=== PATIENT | male | born 1940 | race American Indian/Alaskan Native ===

== ENCOUNTER 2016-11-27 07:05 | Day surgery (SDC) | payer BC, MEDICARE ==
[2016-11-27] MEDS ORDERED: XYLOCAINE MPF 2% ONE (07:15)
[2016-11-27] MEDS ORDERED: DECADRON ONE (07:15)
[2016-11-27] MEDS ORDERED: DILAUDID ONE ×2 (07:15→09:59)
[2016-11-27] MEDS ORDERED: DIPRIVAN 10 MG/ML IV ONE (07:15)
[2016-11-27] MEDS ORDERED: ZOFRAN ONE (07:16)
[2016-11-27] MEDS ORDERED: TRIPLE ANTIBIOTIC TP ONE (07:54)
[2016-11-27] MEDS ORDERED: MARCAINE 0.25% INFILTRATI ONE (07:54)
[2016-11-27] MEDS ORDERED: PEPCID PO NR (08:39)
[2016-11-27] MEDS ORDERED: NACL 0.9% 1000 ML 1,000 ML IV SCH (08:39)
--- NOTE | 2016-11-27 08:39 | Anesthesia Consultation ---
Anesthesia Consult and Med Hx Date of service: 11/27/16 - Airway Anesthetic Teeth Evaluation: Edentulous ROM Head & Neck: Adequate Mental/Hyoid Distance: Adequate Mallampati Class: Class II Intubation Access Assessment: Probably Good - Pulmonary Exam CTA: Yes - Cardiac Exam Cardiac Exam: No Murmur - Pre-Operative Health Status ASA Pre-Surgery Classification: ASA3 Proposed Anesthetic Plan: General - Pulmonary Hx Smoking: No Hx Sleep Apnea: Yes (consistently uses CPAP) - Cardiovascular System Hx Hypertension: Yes (X 30 YRS) Hx Cardia Arrhythmia: Yes (occassional PAC/PVC) - Central Nervous System Hx Neuromuscular Disorder: No Hx Psychiatric Problems: No - Gastrointestinal Hx Gastroesophageal Reflux Disease: No - Endocrine Hx Renal Disease: No Hx Insulin Dependent Diabetes: No - Hematic Hx Anemia: No Hx Sickle Cell Disease: No - Other Systems Hx Alcohol Use: No Hx Substance Use: No Hx Cancer: No Hx Obesity: No
--- NOTE | 2016-11-27 08:39 | Anesthesia Day of Surgery ---
Anesthesia Day of Surgery - Day of Surgery Patient Examined: Yes Patient H&P Reviewed: Yes Patient is NPO: Yes
[2016-11-27] MEDS ORDERED: ANCEF/STERILE WATER 2 GM/20 ML 2 GM/20 ML SYRINGE IV NR ×2 (09:00)
[2016-11-27] MEDS ORDERED: NACL 0.9% IR ONE (09:45)
[2016-11-27] MEDS ORDERED: TORADOL ONE (09:49)
--- NOTE | 2016-11-27 10:01 | Post Operative Note ---
Date of procedure: 11/27/16 Pre-op diagnosis: balabitis Post-op diagnosis: same Findings: as above Procedure: circ Anesthesia: GETA Surgeon: FLORENCE ROMAN Estimated blood loss: minimal Pathology: list (foreskin) Specimen disposition: to lab Condition: stable Disposition: PACU
--- NOTE | 2016-11-27 10:03 | Discharge Summary ---
Short Stay Discharge Plan Activity: other (no sex .. no straining ) Weight Bearing Status: Full Weight Bearing Diet: low fat, low cholesterol, low salt Wound: open to air (remove dressing at 7 pm tonight ice packs today ) Durable Medical Equipment Needed Upon Discharge: other (ice opacks in RR) Follow up with: PRIMARY CAREMD [Primary Care Provider] - 7 Days FLORENCE ROMAN MD [Staff Physician] - 14 Days
--- NOTE | 2016-11-27 10:30 | Post Anesthesia Evaluation ---
- Post Anesthesia Evaluation Patient Participated: Yes Airway Patent: Yes Stable Respiratory Function: Yes Nausea/Vomiting: No Temp > 96.8F: Yes Pain Manageable: Yes Adequeate Hydration: Yes Anesthesia Complications: No Block Receding Appropriately: Not Applicable Patient on Ventilator: No
[2016-11-27] MEDS ORDERED: DILAUDID IV PRN (10:33)
[2016-11-27] MEDS ORDERED: ZOFRAN IV PRN (10:33)
[2016-11-27] MEDS ORDERED: NORCO 5/325 PO PRN (11:00)
[2016-11-27 11:23] VITALS: BP 142/69
--- NOTE | 2016-11-27 13:32 | Operative Report ---
PREOPERATIVE DIAGNOSES: Recurrent balanitis, redundant foreskin. POSTOPERATIVE DIAGNOSES: Recurrent balanitis, redundant foreskin. PROCEDURE: Circumcision, sleeve technique. SURGEON: Tj Crane MD ANESTHESIA: General LMA. FINDINGS: This is a gentleman with recurrent balanitis, irritation, and redundant foreskin. He now presents for circumcision. All risks and complications were discussed. DESCRIPTION OF PROCEDURE: The patient brought to the operating room and placed on the operating table. Following induction of anesthesia, placed in lithotomy position, prepped and draped in usual sterile fashion. Two circumferential incisions were made with a marking pencil and the incision was made. The area was connected dorsally and a large amount of redundant foreskin was removed. The excess skin was dissected free of the surrounding fascial layers. This was removed. Hemostasis was obtained with 3-0 Vicryl ties and cautery as needed. At this point, the sutures were placed 12, 3, 6, and 9 o'clock position. Each quadrant was sutured with 3-0 and 4-0 chromic. A small amount of frenulum was approximated with 4-0 chromic. The patient tolerated the procedure well. Minimal blood loss. Brought to recovery room with a loose sterile dressing in stable condition. JOB# [id number] TAYE/DALY
== END 2016-11-27 12:17 | disposition home or self-care (01) ==
LOC: OR 07:05
PROVIDERS: ATTEND Urology
DX: N48.1 Balanitis (principal); N47.8 Other disorders of prepuce; I10 Essential (primary) hypertension; G47.33 Obstructive sleep apnea (adult) (pediatric); Z79.899 Other long term (current) drug therapy
CPT/HCPCS: 54161; 88304; J0690; J1100; J1170; J1885; J2405; J2704; J7030; A6250

== ENCOUNTER 2018-11-06 05:50 | Day surgery (SDC) | payer BC ==
[2018-11-06 06:57] LABS: Basophils # (Auto) 0.1 K/mm3 (0.0-0.1); Basophils % (Auto) 2.2 % (0.0-1.8); Eosinophils # (Auto) 0.1 K/mm3 (0.0-0.4); Hemoglobin 14.3 gm/dl (11.8-15.2); Lymphocytes # (Auto) 1.8 K/mm3 (1.2-5.4); Mean Corpuscular HGB Conc 33 % (32-34); Mean Corpuscular Volume 84 fl (84-94); Monocytes # (Auto) 0.5 K/mm3 (0.0-0.8); Monocytes % (Auto) 10.6 % (0.0-7.3); Platelet Count 228 K/mm3 (140-440); Red Blood Count 5.13 M/mm3 (3.65-5.03); Red Cell Distribution Width 14.5 % (13.2-15.2)
[2018-11-06 07:06] LABS: INR 1.08 (0.87-1.13); Partial Thromboplastin Time 27.2 Sec. (24.2-36.6)
[2018-11-06 07:17] LABS: BUN/Creatinine Ratio 15; Blood Urea Nitrogen 20 mg/dL (9-20); Calcium 9.4 mg/dL (8.4-10.2); Hemolysis Index 90
[2018-11-06] MEDS ORDERED: NACL 0.9% 500 ML 500 ML IV SCH (08:00)
[2018-11-06] MEDS ORDERED: HURRICAINE ONE 20% TOPICAL SPRAY MM NR (08:00)
--- NOTE | 2018-11-06 08:04 | Anesthesia Consultation ---
Anesthesia Consult and Med Hx Date of service: 11/06/18 - Airway Anesthetic Teeth Evaluation: Edentulous ROM Head & Neck: Adequate Mental/Hyoid Distance: Adequate Mallampati Class: Class III Intubation Access Assessment: Possibly Difficult - Pulmonary Exam CTA: Yes - Cardiac Exam Cardiac Exam: No Murmur - Pre-Operative Health Status ASA Pre-Surgery Classification: ASA3 Proposed Anesthetic Plan: MAC - Pulmonary Hx Smoking: No Hx Respiratory Symptoms: No Hx Sleep Apnea: Yes (compliant with CPAP) - Cardiovascular System Hx Hypertension: Yes (no antihypertensives today) Hx Heart Attack/AMI: No Hx Percutaneous Transluminal Coronary Angioplasty (PTCA): No Hx Cardia Arrhythmia: Yes (aifb/flutter) Hx Pacemaker: No Hx Internal Defibrillator: No Hx Peripheral Vascular Disease: Yes - Central Nervous System Hx Neuromuscular Disorder: No CVA: No Hx Psychiatric Problems: No - Gastrointestinal Hx Gastroesophageal Reflux Disease: No - Endocrine Hx Renal Disease: No Hx Liver Disease: No Hx Insulin Dependent Diabetes: No Hx Non-Insulin Dependent Diabetes: No Hx Thyroid Disease: No - Other Systems Hx Alcohol Use: No Hx Substance Use: No Hx Obesity: Yes - Additional Comments Anesthesia Medical History Comments: No hx anesthetic complications. Last dose eliquis 11/04/18. 10/19/18: EF 50-55% without significant valvular lesions, negative stress test.
--- NOTE | 2018-11-06 08:05 | Anesthesia Day of Surgery ---
Anesthesia Day of Surgery - Day of Surgery Patient Examined: Yes Patient H&P Reviewed: Yes Patient is NPO: Yes
[2018-11-06] MEDS ORDERED: DIPRIVAN 10 MG/ML IV ONE ×2 (08:07)
[2018-11-06] MEDS ORDERED: ELIQUIS PO NR (09:11)
--- NOTE | 2018-11-06 09:12 | Post Anesthesia Evaluation ---
- Post Anesthesia Evaluation Patient Participated: Yes Airway Patent: Yes Stable Respiratory Function: Yes Nausea/Vomiting: No Temp > 96.8F: Yes Pain Manageable: Yes Adequeate Hydration: Yes Anesthesia Complications: No
[2018-11-06] MEDS ORDERED: ELIQUIS ONE (10:09)
[2018-11-06 10:35] VITALS: BP 122/83
== END 2018-11-06 11:23 | disposition home or self-care (01) ==
LOC: CATHLABREC 05:50 → EDSTATUS 07:30 → CATHLABREC 11:23
PROVIDERS: ATTEND Internal Medicine Cardiovascular Disease
DX: I08.0 Rheumatic disorders of both mitral and aortic valves (principal); I48.0 Paroxysmal atrial fibrillation; I10 Essential (primary) hypertension; E66.9 Obesity, unspecified; I73.9 Peripheral vascular disease, unspecified; Z79.82 Long term (current) use of aspirin; Z79.899 Other long term (current) drug therapy; Z98.890 Other specified postprocedural states; Z68.39 Body mass index [BMI] 39.0-39.9, adult
CPT/HCPCS: 36415; 80048; 85025; 85610; 85730; 92960; 93005; 93010; 93312; 93320; 93325; J2704; J7040

== ENCOUNTER 2019-08-19 10:35 | Emergency (ER) | payer BC ==
[2019-08-19 10:52] VITALS: BP 165/84
--- NOTE | 2019-08-19 12:04 | Emergency Department Report ---
ED Headache HPI - General Chief Complaint: Headache Stated Complaint: COLD Time Seen by Provider: 08/19/19 11:33 - History of Present Illness Initial Comments: This is a 79-year-old male with a history of hypertension controlled with medication who presents the ED complaining of sneezing for the past 2 days feeling like he is getting a cold due to the weather change and a nasal congestion with headache. Patient denies any fever, chills, nausea or vomiting or abdominal pain, chest pain or shortness of breath. Patient states that he takes his medication daily as prescribed by his primary care Dr. Eleazar Estrella. Patient states that his office was closed so he was not able to go in to the PCP. Patient states that right now headache is about a 3 out of 10 intensity and mild. He denies any recent head injury, trauma, blurry vision. Patient does use corrective lenses. Timing/Duration: 24 hours Quality: achy Head Injury Location: frontal Allergies/Adverse Reactions: Allergies No Known Allergies Allergy (Verified 11/23/16 10:25) Home Medications: Ambulatory Orders Aspirin [Adult Low Dose Aspirin EC] 81 mg PO DAILY 11/23/16 Apixaban [Eliquis] 5 mg PO BID 11/06/18 Valsartan/Hydrochlorothiazide [Valsartan-Hctz 160-25 mg Tab] 1 tab PO BID 11/06/18 dilTIAZem HCl [Diltiazem 24Hr ER (LA)] 180 mg PO DAILY 11/06/18 Fluticasone [Flonase] 1 spray NS QDAY #1 bottle 08/19/19 Pseudoephedrine ER [Sudafed 12 Hr] 120 mg PO BID #10 tablet.er 08/19/19 ED Review of Systems ROS: Stated complaint: COLD Other details as noted in HPI Comment: All other systems reviewed and negative ED Past Medical Hx - Past Medical History Previous Medical History?: Yes Hx Hypertension: Yes (no antihypertensives today) Hx Heart Attack/AMI: No Hx Liver Disease: No Hx Renal Disease: No Hx Sickle Cell Disease: No - Surgical History Past Surgical History?: No Hx Pacemaker: No Hx Internal Defibrillator: No - Social History Smoking Status: Never Smoker Substance Use Type: None - Medications Home Medications: Home Medications Medication Instructions Recorded Confirmed Last Taken Type Aspirin [Adult Low Dose Aspirin EC] 81 mg PO DAILY 07/11/06/18 11/04/18 History 81 mg Apixaban [Eliquis] 5 mg PO BID 11/06/18 11/06/18 11/04/18 History 5 mg Valsartan/Hydrochlorothiazide 1 tab PO BID 11/06/18 11/06/18 11/05/18 History [Valsartan-Hctz 160-25 mg Tab] 1 tab dilTIAZem HCl [Diltiazem 24Hr ER 180 mg PO DAILY 11/06/18 11/06/18 11/05/18 History (LA)] 180 mg Fluticasone [Flonase] 1 spray NS QDAY #1 bottle 08/19/19 Unknown Rx Pseudoephedrine ER [Sudafed 12 Hr] 120 mg PO BID #10 tablet.er 08/19/19 Unknown Rx ED Physical Exam - General Limitations: No Limitations General appearance: alert, in no apparent distress - Head Head exam: Present: atraumatic, normocephalic - Eye Eye exam: Present: normal appearance, PERRL Pupils: Present: normal accommodation - ENT ENT exam: Present: mucous membranes moist, other (Maxillary sinus tenderness palpation, no rhinorrhea, clear nostrils, turbinates pink and moist) - Neck Neck exam: Present: normal inspection, full ROM. Absent: tenderness - Respiratory Respiratory exam: Present: normal lung sounds bilaterally. Absent: respiratory distress - Cardiovascular Cardiovascular Exam: Present: regular rate, normal rhythm. Absent: systolic murmur, diastolic murmur, rubs, gallop - GI/Abdominal GI/Abdominal exam: Present: soft, normal bowel sounds - Rectal Rectal exam: Present: deferred - Extremities Exam Extremities exam: Present: normal inspection - Back Exam Back exam: Present: normal inspection - Neurological Exam Neurological exam: Present: alert, oriented X3, CN II-XII intact, normal gait - Psychiatric Psychiatric exam: Present: normal affect, normal mood - Skin Skin exam: Present: warm, dry, intact, normal color. Absent: rash ED Course Vital Signs 08/19/19 10:51 Temperature 98.3 F Pulse Rate 45 L Respiratory 20 Rate Blood Pressure 165/84 O2 Sat by Pulse 99 Oximetry ED Medical Decision Making - Medical Decision Making This 79-year-old male presenting with allergic rhinitis/sinusitis. I discussed with patient that he should avoid being out in the pollen for a long time and wear a mask while outside. I discussed with the patient to take Sudafed, Flonase as well as vitamin C for immune strength. Patient is not having any neurological deficit or having any pain at this time. Patient will be discharged with instructions and follow-up with Dr. Piña. Patient does state that he understands instructions. Vital signs are normal patient is in no acute distress Critical care attestation.: If time is entered above; I have spent that time in minutes in the direct care of this critically ill patient, excluding procedure time. ED Disposition Clinical Impression: Allergic rhinitis, Allergic sinusitis, Sinus headache Disposition: TO HOME OR SELFCARE Is pt being admited?: No Does the pt Need Aspirin: No Condition: Stable Instructions: Sinusitis (ED), Tension Headache (ED), Acute Headache (ED) Additional Instructions: Make sure to follow up with the primary care physician as discussed. Take all your medications as you've been prescribed. If you have any worsening symptoms or develop new symptoms please return to ED immediately. Prescriptions: Fluticasone [Flonase] 1 spray NS QDAY #1 bottle Pseudoephedrine ER [Sudafed 12 Hr] 120 mg PO BID #10 tablet.er Referrals: PRIMARY MD MIKE [Primary Care Provider] - 3-5 Days ELEAZAR ESTRELLA MD [Referring] - 3-5 Days Forms: Work/School Release Form(ED) Time of Disposition: 12:06
== END 2019-08-19 12:24 | disposition home or self-care (01) ==
LOC: ED 10:35
DX: J30.89 Other allergic rhinitis (principal); I10 Essential (primary) hypertension
CPT/HCPCS: 99282

== ENCOUNTER 2020-02-11 15:51 | Observation (INO) | payer BC, MEDICARE ==
[2020-02-11 16:55] LABS: Basophils % (Auto) 0.9 % (0.0-1.8); Eosinophils # (Auto) 0.1 K/mm3 (0.0-0.4); Eosinophils % (Auto) 1.9 % (0.0-4.3); Hematocrit 42.3 % (35.5-45.6); Hemoglobin 14.1 gm/dl (11.8-15.2); Lymphocytes # (Auto) 1.4 K/mm3 (1.2-5.4); Mean Corpuscular HGB Conc 33 % (32-34); Mean Corpuscular Volume 86 fl (84-94); Monocytes # (Auto) 0.5 K/mm3 (0.0-0.8); Monocytes % (Auto) 11.5 % (0.0-7.3); Platelet Count 220 K/mm3 (140-440); Red Blood Count 4.92 M/mm3 (3.65-5.03); Red Cell Distribution Width 14.7 % (13.2-15.2)
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
[2020-02-11 17:07] LABS: INR 1.14 (0.87-1.13); Partial Thromboplastin Time 28.9 Sec. (24.2-36.6); Thrombin Time 16.5 Sec. (15.1-19.6)
--- NOTE | 2020-02-11 17:07 | Cat Scan Report ---
CT head/brain wo con INDICATION / CLINICAL INFORMATION: 79 years Male; cerebrovascular accident, altered mental status.. TECHNIQUE: Routine CT head without contrast. All CT scans at this location are performed using CT dos e reduction for ALARA by means of automated exposure control. COMPARISON: None. FINDINGS: BRAIN / INTRACRANIAL CONTENTS: There is an old lacunar infarct involving right thalamus. There is mil d to moderate cerebral white matter disease most consistent with microvascular angiopathy. There is a lso mild cerebral atrophy with associated mild prominence of the ventricular system. The motion degrades the image quality. There is incidental dense calcification along the falx. Howeve r, there is no clear CT evidence of acute intracranial hemorrhage or significant mass effect. The findings are compatible with a 1.6 cm meningioma along the anterior right temporal lobe with focu s of calcification at. Accordingly, this finding appears extra-axial with slight mass effect upon the anterior right temporal lobe. There does not appear to be significant adjacent vasogenic edema. ORBITS: No significant abnormality of visualized orbits. SINUSES / MASTOIDS: No significant abnormality in the visualized paranasal sinuses or mastoid air nadiya ls. CRANIOCERVICAL JUNCTION: No significant abnormality. ADDITIONAL FINDINGS: None. IMPRESSION: 1. 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 Signer Name: Juan Sanchez MD Signed: 02/11/2020 5:02 PM Workstation Name: [id number]
[2020-02-11 17:11] LABS: Creatine Kinase MB 2.8 ng/mL (0.0-4.0)
[2020-02-11 17:12] LABS: Alanine Aminotransferase 15 units/L (7-56); BUN/Creatinine Ratio 10; Blood Urea Nitrogen 13 mg/dL (9-20); Calcium 9.4 mg/dL (8.4-10.2); Hemolysis Index 2
[2020-02-11] MEDS ORDERED: ACETAMINOPHEN 500 MG TAB ONE (17:34)
[2020-02-11] MEDS ORDERED: ACETAMINOPHEN 500 MG TAB PO ONE (17:35)
--- NOTE | 2020-02-11 17:49 | Cat Scan Report ---
CT angio head INDICATION / CLINICAL INFORMATION: 79 years Male; MAIN. TECHNIQUE: Thin cut axial images obtained through the head during IV bolus contrast administration. S agittal, coronal, and 3 plane MIP reconstructions performed by the technologist. NASCET type criteria used evaluate stenoses. Automated exposure control utilized for radiation reduction purposes. COMPARISON: None available. FINDINGS: INTERNAL CAROTID ARTERIES: There is mild atherosclerotic calcification involving distal internal leung tid arteries without significant stenosis by NASCET criteria. VERTEBROBASILAR SYSTEM: There is mild irregularity of the basilar artery with mild segmental narrowin g likely related to atherosclerotic disease at. 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 CEREBRAL ARTERIES: There is no significant focal stenosis involving anterior or middle cerebral arter y branches. Furthermore, there is no clear CTA evidence of large vessel occlusion. ANEURYSM: None identified. ADDITIONAL FINDINGS: The findings correlate with the earlier noncontrast CT head compatible with 1.5 cm meningioma along the anterior right frontal lobe. There are coursing adjacent of vessels are withi n this region with mild degree of mass effect. There also appears to be a smaller 1 cm meningioma rojas ng the anterior sphenoid wing. IMPRESSION: There is mild segmental narrowing involving the basilar artery.. 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 There is mild atherosclerotic calcification involving distal internal carotid arteries without signif icant focal stenosis. The findings are compatible with meningiomas along the anterior right middle cranial fossa and left s phenoid wing as detailed above. Signer Name: Juan Sanchez MD Signed: 02/11/2020 5:45 PM Workstation Name: [id number]
--- NOTE | 2020-02-11 17:55 | Cat Scan Report ---
CT angio neck INDICATION / CLINICAL INFORMATION: 79 years Male; AMS. TECHNIQUE: Thin cut axial images obtained through the head during IV bolus contrast administration. S agittal, coronal, and 3 plane MIP reconstructions performed by the technologist. NASCET type criteria used evaluate stenoses. All CT scans at this location are performed using CT dose reduction for ALAR A by means of automated exposure control. COMPARISON: None available. FINDINGS: CAROTID ARTERIES: There is mild calcified plaque involving proximal internal carotid arteries without significant stenosis by NASCET criteria. There is developmental tortuosity of the distal segments bi laterally without focal narrowing. The common carotid arteries are essentially unremarkable. VERTEBRAL ARTERIES: The proximal vertebral arteries are scattered by the degree of beam hardening art ifact at. There is relative hypoplasia of the vertebral arteries which represents a developmental praveen iant. However, there is no significant focal stenosis. ARCH: There is mild calcification involving the aortic arch without significant narrowing of the arch vessels. ADDITIONAL FINDINGS: Remainder of the surrounding soft tissues are grossly normal. IMPRESSION: There is very mild calcification involving the proximal internal carotid arteries bilaterally without significant stenosis by NASCET criteria. Signer Name: Juan Sanchez MD Signed: 02/11/2020 5:50 PM Workstation Name: [id number]
--- NOTE | 2020-02-11 18:20 | Emergency Department Report ---
ED General Adult HPI - General Chief complaint: Altered Mental Status Stated complaint: HEADACHE/AMS Time Seen by Provider: 02/11/20 16:34 Source: patient, EMS Mode of arrival: Stretcher Limitations: No Limitations - History of Present Illness Initial comments: Patient presents to the emergency department with a chief complaint of right- sided weakness. Patient states this morning woke up with a headache which is abnormal for him because he does not have headaches frequently and some weakness. 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 Patient states while driving he began to have difficulty remembering where he was going and then he began to have right-sided weakness and at that point he reported to the [facility] on [address]. At this point his friend called the paramedics and he agreed to come to the hospital. Patient denies chest pain, shortness of breath, or abdominal pain. -: Sudden Severity scale (0 -10): 3 Quality: other (Throbbing) Consistency: constant Improves with: none Worsens with: none Associated Symptoms: denies other symptoms Treatments Prior to Arrival: none - Related Data Home Medications Medication Instructions Recorded Confirmed Last Taken Aspirin [Adult Low Dose Aspirin EC] 81 mg PO DAILY 11/23/16 11/06/18 11/04/18 81 mg Apixaban [Eliquis] 5 mg PO BID 11/06/18 11/06/18 11/04/18 5 mg Valsartan/Hydrochlorothiazide 1 tab PO BID 11/06/18 11/06/18 11/05/18 [Valsartan-Hctz 160-25 mg Tab] 1 tab dilTIAZem HCl [Diltiazem 24Hr ER 180 mg PO DAILY 11/06/18 11/06/18 11/05/18 (LA)] 180 mg Previous Rx's Medication Instructions Recorded Last Taken Type Fluticasone [Flonase] 1 spray NS QDAY #1 bottle 08/19/19 Unknown Rx Pseudoephedrine ER [Sudafed 12 Hr] 120 mg PO BID #10 tablet.er 08/19/19 Unknown Rx Allergies Allergy/AdvReac Type Severity Reaction Status Date / Time No Known Allergies Allergy Verified 11/23/16 10:25 ED Review of Systems ROS: Stated complaint: HEADACHE/AMS Other details as noted in HPI Constitutional: denies: chills, fever Eyes: denies: eye pain, eye discharge, vision change ENT: denies: ear pain, throat pain Respiratory: denies: cough, shortness of breath, wheezing Cardiovascular: denies: chest pain, palpitations Endocrine: no symptoms reported Gastrointestinal: denies: abdominal pain, nausea, diarrhea Genitourinary: denies: urgency, dysuria Musculoskeletal: denies: back pain, joint swelling, arthralgia Skin: denies: rash, lesions Neurological: headache. denies: weakness, paresthesias Psychiatric: denies: anxiety, depression Hematological/Lymphatic: denies: easy bleeding, easy bruising ED Past Medical Hx - Past Medical History Hx Hypertension: Yes (no antihypertensives today) Hx Heart Attack/AMI: No Hx Liver Disease: No Hx Renal Disease: No Hx Sickle Cell Disease: No - Surgical History Hx Pacemaker: No Hx Internal Defibrillator: No - Social History Smoking Status: Never Smoker Substance Use Type: None - Medications Home Medications: Home Medications Medication Instructions Recorded Confirmed Last Taken Type Aspirin [Adult Low Dose Aspirin EC] 81 mg PO DAILY 11/23/16 11/06/18 11/04/18 History 81 mg Apixaban [Eliquis] 5 mg PO BID 11/06/18 11/06/18 11/04/18 History 5 mg Valsartan/Hydrochlorothiazide 1 tab PO BID 11/06/18 11/06/18 11/05/18 History [Valsartan-Hctz 160-25 mg Tab] 1 tab dilTIAZem HCl [Diltiazem 24Hr ER 180 mg PO DAILY 11/06/18 11/06/18 11/05/18 History (LA)] 180 mg Fluticasone [Flonase] 1 spray NS QDAY #1 bottle 08/19/19 Unknown Rx Pseudoephedrine ER [Sudafed 12 Hr] 120 mg PO BID #10 tablet.er 08/19/19 Unknown Rx ED Physical Exam - General Limitations: No Limitations General appearance: alert, in no apparent distress - Head Head exam: Present: atraumatic, normocephalic - Eye Eye exam: Present: normal appearance, PERRL, EOMI - ENT ENT exam: Present: mucous membranes moist - Neck Neck exam: Present: normal inspection - Respiratory Respiratory exam: Present: normal lung sounds bilaterally. Absent: respiratory distress - Cardiovascular Cardiovascular Exam: Present: regular rate, normal rhythm. Absent: systolic murmur, diastolic murmur, rubs, gallop - GI/Abdominal GI/Abdominal exam: Present: soft, normal bowel sounds. Absent: distended, t enderness - Rectal Rectal exam: Present: deferred - Extremities Exam Extremities exam: Present: normal inspection - Back Exam Back exam: Present: normal inspection - Neurological Exam Neurological exam: Present: alert, oriented X3, CN II-XII intact. Absent: motor sensory deficit - Psychiatric Psychiatric exam: Present: normal affect, normal mood - Skin Skin exam: Present: warm, dry, intact, normal color. Absent: rash ED Course Vital Signs 02/11/20 02/11/20 02/11/20 15:54 16:01 16:24 Temperature 99.3 F Pulse Rate 83 62 Respiratory 18 18 Rate Blood Pressure 165/81 Blood Pressure [Right] O2 Sat by Pulse 100 Oximetry 02/11/20 16:25 Temperature Pulse Rate 64 Respiratory 16 Rate Blood Pressure Blood Pressure 156/78 [Right] O2 Sat by Pulse 95 Oximetry ED Medical Decision Making - Lab Data Result diagrams: 02/11/20 16:35 02/11/20 16:35 Lab Results 02/11/20 02/11/20 02/11/20 Range/Units 16:35 16:35 16:35 WBC 4.7 (4.5-11.0) K/mm3 RBC 4.92 (3.65-5.03) M/mm3 Hgb 14.1 (11.8-15.2) gm/dl Hct 42.3 (35.5-45.6) % MCV 86 (84-94) fl MCH 29 (28-32) pg MCHC 33 (32-34) % RDW 14.7 (13.2-15.2) % Plt Count 220 (140-440) K/mm3 Lymph % (Auto) 31.0 (13.4-35.0) % [place] % (Auto) 11.5 H (0.0-7.3) % Eos % (Auto) 1.9 (0.0-4.3) % Baso % (Auto) 0.9 (0.0-1.8) % Lymph # (Auto) 1.4 (1.2-5.4) K/mm3 [place] # (Auto) 0.5 (0.0-0.8) K/mm3 Eos # (Auto) 0.1 (0.0-0.4) K/mm3 Baso # (Auto) 0.0 (0.0-0.1) K/mm3 Seg Neutrophils % 54.7 (40.0-70.0) % Seg Neutrophils # 2.5 (1.8-7.7) K/mm3 PT 14.8 (12.2-14.9) Sec. INR 1.14 H (0.87-1.13) APTT 28.9 (24.2-36.6) Sec. Thrombin Time 16.5 (15.1-19.6) Sec. Sodium 142 (137-145) mmol/L Potassium 4.1 (3.6-5.0) mmol/L Chloride 102.6 (98-107) mmol/L Carbon Dioxide 27 (22-30) mmol/L Anion Gap 17 mmol/L BUN 13 (9-20) mg/dL Creatinine 1.3 (0.8-1.3) mg/dL Estimated GFR > 60 ml/min BUN/Creatinine Ratio 10 % Glucose 94 (75-100) mg/dL Calcium 9.4 (8.4-10.2) mg/dL Total Bilirubin 0.40 (0.1-1.2) mg/dL AST 18 (5-40) units/L ALT 15 (7-56) units/L Alkaline Phosphatase 87 (35-129) units/L Total Creatine Kinase 277 H (55-170) units/L CK-MB (CK-2) 2.8 (0.0-4.0) ng/mL CK-MB (CK-2) Rel Index 1.0 (0-4) Troponin T < 0.010 (0.00-0.029) ng/mL Total Protein 7.7 (6.3-8.2) g/dL Albumin 4.0 (3.9-5) g/dL Albumin/Globulin Ratio 1.1 % - EKG Data -: EKG Interpreted by Nj - EKG Data 02/11/20 18:56 Irregularly irregular Atrial flutter 66 bpm - Radiology Data Radiology results: report reviewed - Medical Decision Making Code stroke started and since the patient had improvement in the symptoms TPA was not warranted per the tele-neurologist. CT of the head and neck does not show a large vessel occlusion. Suggestions for admission for further CVA work- up Critical care attestation.: If time is entered above; I have spent that time in minutes in the direct care of this critically ill patient, excluding procedure time. ED Disposition Clinical Impression: AMS (altered mental status), TIA (transient ischemic attack) Disposition: PAT REG,TRIAGED-NO MSE Is pt being admited?: Yes Does the pt Need Aspirin: Yes Condition: Fair - Assessment Assessment Interval: Baseline - Level of Consciousness 1a. Level of Consciousness: alert/keenly responsive - LOC Questions 1b. LOC Questions: answers no questions correctly - LOC Command 1c. LOC Commands: performs tasks correctly - Best Gaze 2. Best Gaze: normal - Visual 3. Visual: no visual loss - Facial Palsy 4. Facial Palsy: minor paralysis - Motor Arm 5a. Motor Arm Left: no drift 5b. Motor Arm Right: no drift - Motor Leg 6a. Motor Leg Left: drift 6b. Motor Leg Right: drift - Limb Ataxia 7. Limb Ataxia: absent - Sensory 8. Sensory: normal - Best Language 9. Best Language: no aphasia - Dysarthria 10. Dysarthria: mild/moderate dysarthria - Extinction and Inattention 11. Extinction/Inattention: no abnormality - Scoring Total Score: 6 Stroke Severity: Moderate Stroke
[2020-02-11] MEDS ORDERED: ASPIRIN 81 MG TAB CHEW PO ONE (19:00)
[2020-02-11] MEDS ORDERED: BUTALB/ACETAMINOPHEN/CAFFEINE TAB PO ONE (19:15)
--- NOTE | 2020-02-12 05:14 | History and Physical Report ---
History of Present Illness Date of examination: 02/11/20 Date of admission: 02/11/20 19:00 Chief complaint: Right right-sided weakness which lasted for 2 hours. History of present illness: 79-year-old -Martiniquais male with history of hypertension and atrial fibr illation work-up with a headache which lasted for about 1 hour. Patient was asked to go to the emergency room by one of his friends. 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 Patient states while driving he began to have difficulty remembering where he was going and also right-sided weakness. At this point he reported [facility] and EMS was called. Right-sided weakness lasted for couple of hours. Patient does not have any nasal regurgitation of fluids. Patient feels that his strength is come back to normal. No right facial droop or diplopia. No loss of consciousness. No uncoordinated gait. - Past Medical History Hypertension: Yes (no antihypertensives today) - Surgical History Hx Pacemaker: No - Social History Smoking Status: Never Smoker Substance Use Type: None Family history hypertension - Medications Home Medications: Home Medications Medication Instructions Recorded Confirmed Last Taken Type Aspirin [Adult Low Dose Aspirin EC] 81 mg PO DAILY 11/23/16 11/06/18 11/04/18 History 81 mg Apixaban [Eliquis] 5 mg PO BID 11/06/18 11/06/18 11/04/18 History 5 mg Valsartan/Hydrochlorothiazide 1 tab PO BID 11/06/18 11/06/18 11/05/18 History [Valsartan-Hctz 160-25 mg Tab] 1 tab dilTIAZem HCl [Diltiazem 24Hr ER 180 mg PO DAILY 11/06/18 11/06/18 11/05/18 History (LA)] 180 mg Fluticasone [Flonase] 1 spray NS QDAY #1 bottle 08/19/19 Unknown Rx Pseudoephedrine ER [Sudafed 12 Hr] 120 mg PO BID #10 tablet.er 08/19/19 Unknown Rx Review of Systems ROS: Stated complaint: HEADACHE/AMS Other details as noted in HPI Constitutional: denies: chills, fever Eyes: denies: eye pain, eye discharge, vision change ENT: denies: ear pain, throat pain Respiratory: denies: cough, shortness of breath, wheezing Cardiovascular: denies: chest pain, palpitations Endocrine: no symptoms reported Gastrointestinal: denies: abdominal pain, nausea, diarrhea Genitourinary: denies: urgency, dysuria Musculoskeletal: denies: back pain, joint swelling, arthralgia Skin: denies: rash, lesions Neurological: Right-sided weakness which lasted for 2 hours and resolved. No loss of consciousness. Psychiatric: denies: anxiety, depression Hematological/Lymphatic: denies: easy bleeding, easy bruising Medications and Allergies Allergies Allergy/AdvReac Type Severity Reaction Status Date / Time No Known Allergies Allergy Verified 11/23/16 10:25 Home Medications Medication Instructions Recorded Confirmed Last Taken Type Aspirin [Adult Low Dose Aspirin EC] 81 mg PO DAILY 11/23/16 11/06/18 11/04/18 History 81 mg Apixaban [Eliquis] 5 mg PO BID 11/06/18 11/06/18 11/04/18 History 5 mg Valsartan/Hydrochlorothiazide 1 tab PO BID 11/06/18 11/06/18 11/05/18 History [Valsartan-Hctz 160-25 mg Tab] 1 tab dilTIAZem HCl [Diltiazem 24Hr ER 180 mg PO DAILY 11/06/18 11/06/18 11/05/18 History (LA)] 180 mg Fluticasone [Flonase] 1 spray NS QDAY #1 bottle 08/19/19 Unknown Rx Pseudoephedrine ER [Sudafed 12 Hr] 120 mg PO BID #10 tablet.er 08/19/19 Unknown Rx Exam - Constitutional Vitals: Temp Pulse Resp BP Pulse Ox 97.9 F 59 L 34 H 141/64 98 02/11/20 20:48 02/11/20 21:55 02/11/20 21:21 02/11/20 21:43 02/11/20 21:55 General appearance: Present: no acute distress, well-nourished - EENT Eyes: Present: PERRL ENT: hearing intact, clear oral mucosa - Neck Neck: Present: supple, normal ROM - Respiratory Respiratory effort: normal Respiratory: bilateral: CTA - Cardiovascular Heart rate: 80 Rhythm: irregularly irregular Heart Sounds: Present: S1 & S2. Absent: rub, click - Extremities Extremities: pulses symmetrical, No edema Peripheral Pulses: within normal limits - Abdominal General gastrointestinal: Present: soft, non-tender, non-distended, normal bowel sounds Male genitourinary: Present: normal - Integumentary Integumentary: Present: clear, warm, dry - Musculoskeletal Musculoskeletal: gait normal, strength equal bilaterally - Psychiatric Psychiatric: appropriate mood/affect, intact judgment & insight - Neurologic Neurologic: CNII-XII intact, moves all extremities - Allied Health Allied health notes reviewed: nursing, case management HEART Score - HEART Score History: Moderately suspicious Age: > 65 Risk factors: 1-2 risk factors Troponin: Troponin T < 0.010 ng/mL (0.00-0.029) 02/11/20 16:35 Troponin: < normal limit - Critical Actions Critical Actions: 4-6 pts:12-16.6% risk of adverse cardiac event. Should be admitted Results - Labs CBC & Chem 7: 02/11/20 16:35 02/11/20 16:35 Labs: Laboratory Last Values WBC 4.7 K/mm3 (4.5-11.0) 02/11/20 16:35 RBC 4.92 M/mm3 (3.65-5.03) 02/11/20 16:35 Hgb 14.1 gm/dl (11.8-15.2) 02/11/20 16:35 Hct 42.3 % (35.5-45.6) 02/11/20 16:35 MCV 86 fl (84-94) 02/11/20 16:35 MCH 29 pg (28-32) 02/11/20 16:35 MCHC 33 % (32-34) 02/11/20 16:35 RDW 14.7 % (13.2-15.2) 02/11/20 16:35 Plt Count 220 K/mm3 (140-440) 02/11/20 16:35 Lymph % (Auto) 31.0 % (13.4-35.0) 02/11/20 16:35 [place] % (Auto) 11.5 % (0.0-7.3) H 02/11/20 16:35 Eos % (Auto) 1.9 % (0.0-4.3) 02/11/20 16:35 Baso % (Auto) 0.9 % (0.0-1.8) 02/11/20 16:35 Lymph # (Auto) 1.4 K/mm3 (1.2-5.4) 02/11/20 16:35 [place] # (Auto) 0.5 K/mm3 (0.0-0.8) 02/11/20 16:35 Eos # (Auto) 0.1 K/mm3 (0.0-0.4) 02/11/20 16:35 Baso # (Auto) 0.0 K/mm3 (0.0-0.1) 02/11/20 16:35 Seg Neutrophils % 54.7 % (40.0-70.0) 02/11/20 16:35 Seg Neutrophils # 2.5 K/mm3 (1.8-7.7) 02/11/20 16:35 PT 14.8 Sec. (12.2-14.9) 02/11/20 16:35 INR 1.14 (0.87-1.13) H 02/11/20 16:35 APTT 28.9 Sec. (24.2-36.6) 02/11/20 16:35 Thrombin Time 16.5 Sec. (15.1-19.6) 02/11/20 16:35 Sodium 142 mmol/L (137-145) 02/11/20 16:35 Potassium 4.1 mmol/L (3.6-5.0) 02/11/20 16:35 Chloride 102.6 mmol/L (98-107) 02/11/20 16:35 Carbon Dioxide 27 mmol/L (22-30) 02/11/20 16:35 Anion Gap 17 mmol/L 02/11/20 16:35 BUN 13 mg/dL (9-20) 02/11/20 16:35 Creatinine 1.3 mg/dL (0.8-1.3) 02/11/20 16:35 Estimated GFR > 60 ml/min 02/11/20 16:35 BUN/Creatinine Ratio 10 % 02/11/20 16:35 Glucose 94 mg/dL (75-100) 02/11/20 16:35 Calcium 9.4 mg/dL (8.4-10.2) 02/11/20 16:35 Total Bilirubin 0.40 mg/dL (0.1-1.2) 02/11/20 16:35 AST 18 units/L (5-40) 02/11/20 16:35 ALT 15 units/L (7-56) 02/11/20 16:35 Alkaline Phosphatase 87 units/L (35-129) 02/11/20 16:35 Total Creatine Kinase 277 units/L (55-170) H 02/11/20 16:35 CK-MB (CK-2) 2.8 ng/mL (0.0-4.0) 02/11/20 16:35 CK-MB (CK-2) Rel Index 1.0 (0-4) 02/11/20 16:35 Troponin T < 0.010 ng/mL (0.00-0.029) 02/11/20 16:35 Total Protein 7.7 g/dL (6.3-8.2) 02/11/20 16:35 Albumin 4.0 g/dL (3.9-5) 02/11/20 16:35 Albumin/Globulin Ratio 1.1 % 02/11/20 16:35 Short CBC 02/11/20 Range/Units 16:35 WBC 4.7 (4.5-11.0) K/mm3 Hgb 14.1 (11.8-15.2) gm/dl Hct 42.3 (35.5-45.6) % Plt Count 220 (140-440) K/mm3 BMP 02/11/20 16:35 Sodium 142 Potassium 4.1 Chloride 102.6 Carbon Dioxide 27 BUN 13 Creatinine 1.3 Glucose 94 Calcium 9.4 Cardiac Enzymes 02/11/20 Range/Units 16:35 Total Creatine Kinase 277 H (55-170) units/L CK-MB (CK-2) 2.8 (0.0-4.0) ng/mL Troponin T < 0.010 (0.00-0.029) ng/mL Liver Function 02/11/20 Range/Units 16:35 Total Bilirubin 0.40 (0.1-1.2) mg/dL AST 18 (5-40) units/L ALT 15 (7-56) units/L Alkaline Phosphatase 87 (35-129) units/L Albumin 4.0 (3.9-5) g/dL - Imaging and Cardiology EKG: report reviewed (Atrial fibrillation heart rate of 80/min) Imaging and Cardiology: Head CT There is mild to moderate microvascular angiopathy as described without CT evidence of acute intracranial hemorrhage. CT angiogram of the head and neck There is mild segmental narrowing involving the basilar artery. 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 There is mild atherosclerotic calcification involving the distal internal carotid arteries without significant focal stenosis. The findings are compatible with meningiomas along the anterior right middle cranial fossa and left sphenoid wing as detailed above. Neck CTA Mild calcification involving the proximal internal carotid arteries bilaterally without significant stenosis. [place]/IV: IV Catheter Type [Left INT / Saline Lock Antecubital] Assessment and Plan Advance Directives: Yes (Full code) VTE prophylaxis?: Chemical Plan of care discussed with patient/family: Yes - Patient Problems (1) TIA (transient ischemic attack) Current Visit: Yes Status: Acute Plan to address problem: Patient has right-sided weakness which lasted for 2 hours. Patient is a reliable historian. Clinical picture consistent with TIA MRI to be done and carotid duplex scan. Neurology consult. Aspirin started. High-dose statin started. (2) Hypertension Current Visit: Yes Status: Chronic Qualifiers: Hypertension type: essential hypertension Qualified Code(s): I10 - Essential (primary) hypertension Plan to address problem: Continue antihypertensives (3) Atrial fibrillation Current Visit: Yes Status: Chronic Qualifiers: Atrial fibrillation type: persistent (not longstanding) Qualified Code(s): I48.19 - Other persistent atrial fibrillation; I48.1 - Persistent atrial fibrillation Plan to address problem: Continue anticoagulation. (4) DVT prophylaxis Current Visit: Yes Status: Acute Plan to address problem: Patient on anticoagulation for A. fib and GI prophylaxis
[2020-02-12] MEDS ORDERED: ONDANSETRON 4 MG/2 ML INJ IV PRN (05:19)
[2020-02-12] MEDS ORDERED: HYDROmorphone 1 MG/1 ML INJ IV PRN (05:19)
[2020-02-12] MEDS ORDERED: oxyCODONE /ACETAMINOPHEN 5-325MG TAB PO PRN (05:19)
[2020-02-12] MEDS ORDERED: ACETAMINOPHEN 325 MG TAB PO PRN (05:19)
[2020-02-12] MEDS: SODIUM CHLORIDE 0.9% 1000 ML 1,000 ML IV SCH (07:58)
[2020-02-12] MEDS ORDERED: FAMOTIDINE 20 MG/2 ML INJ IV SCH (10:00)
[2020-02-12] MEDS: ASPIRIN EC 81 MG TAB PO SCH (10:48)
[2020-02-12] MEDS: FAMOTIDINE 20 MG TAB PO SCH ×2 (10:48→21:17)
[2020-02-12] MEDS: HEPARIN 5,000 UNIT/1 ML VIAL SUB-Q SCH ×2 (10:48→21:16)
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
--- NOTE | 2020-02-12 11:15 | Magnetic Resonance Report ---
NONENHANCED MR SCAN OF THE BRAIN: INDICATION / CLINICAL INFORMATION: MAIN. Stroke; change in mental status TECHNIQUE: Multiplanar, multisequence MR images of the brain obtained. COMPARISON: CT scan of the head from 02/11/2020 FINDINGS: BRAIN / INTRACRANIAL CONTENTS: No acute ischemia, acute hemorrhage, mass effect, midline shift, or hy drocephalus. Encephalomalacia in the left parietal border zone No significant white matter abnormali ty. ; Moderate cortical involution; punctate chronic ischemia right pyramid; no focal lesion in the cereb ellar hemispheres; periventricular and deep hemispheric white matter lesions due to chronic small ves keith disease; progression since 2009 CRANIOCERVICAL JUNCTION: No significant abnormality. VASCULAR FLOW-VOIDS: No significant abnormality. ORBITS: No significant abnormality of visualized orbits. SINUSES / MASTOIDS: No significant abnormality of visualized sinuses and mastoid air cells. ADDITIONAL FINDINGS: None. IMPRESSION: 1. No acute focal parenchymal lesion in the brain Encephalomalacia in the left parietal border zone Signer Name: Julius Mayorga MD Signed: 02/12/2020 11:10 AM Workstation Name: [id number]
[2020-02-12] MEDS ORDERED: ZIPRASIDONE MESYLATE 20 MG VIAL IM ONE (15:35)
[2020-02-12] MEDS ORDERED: WATER FOR INJ Sterile (PF) 10 ML ONE (15:47)
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
[2020-02-13] MEDS: FAMOTIDINE 20 MG TAB PO SCH ×2 (08:59→22:34)
[2020-02-13] MEDS: HEPARIN 5,000 UNIT/1 ML VIAL SUB-Q SCH ×2 (08:59→22:34)
[2020-02-13] MEDS: ASPIRIN EC 81 MG TAB PO SCH (08:59)
[2020-02-13 10:04] LABS: Bacteria,Urine 1+ /HPF (Negative); Bilirubin,Urine NEG (Negative); Blood,Urine MOD (Negative); Color,Urine Yellow (Yellow); Mucus,Urine 1+ /HPF; Urobilinogen,Urine < 2.0 mg/dL (<2.0)
--- NOTE | 2020-02-13 11:14 | Progress Note ---
Assessment and Plan Assessment and plan: 79-year-old -[place] male with history of hypertension and atrial fibrillation admitted with a headache which lasted for about 1 hour. Patient was asked to go to the emergency room by one of his friends. 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 Patient states while driving he began to have difficulty remembering where he was going and also right-sided weakness. He mentioned symptoms lasted for couple of hours. Patient does not have any nasal regurgitation of fluids. Patient feels that his strength is come back to normal. No right facial droop or diplopia. No loss of consciousness. No uncoordinated gait. Here in the ED, CT head showed no acute stroke. Neurology was consulted for possible CVA. 02/11. MRI brain-shows no acute stroke. CTA head and neck negative for any critical stenosis. Patient still maintained on aspirin at home dose Eliquis. Neurology evaluation appreciated. EEG pending. Echocardiogram also pending as well 02/12. Awaiting EEG. Neurology following. - Patient Problems (1) TIA (transient ischemic attack) Current Visit: Yes Status: Acute Plan to address problem: Continue aspirin and Eliquis MRI brain showed no acute infarct CTA head and neck negative for any critical stenosis. Echocardiogram negative Need to rule out possible seizure as etiology-EEG still pending (2) Hypertension Current Visit: Yes Status: Chronic Qualifiers: Hypertension type: essential hypertension Qualified Code(s): I10 - Essential (primary) hypertension Plan to address problem: Continue antihypertensives (3) Atrial fibrillation Current Visit: Yes Status: Chronic Qualifiers: Atrial fibrillation type: persistent (not longstanding) Qualified Code(s): I48.19 - Other persistent atrial fibrillation; I48.1 - Persistent atrial fibrillation Plan to address problem: Continue anticoagulation. (4) DVT prophylaxis Current Visit: Yes Status: Acute Plan to address problem: Patient on anticoagulation for A. fib and GI prophylaxis History Interval history: Patient seen and examined at bedside. He feels great. Awaiting EEG. Neuro eval noted Hospitalist Physical - Constitutional Vitals: Temp Pulse Resp BP Pulse Ox 98.2 F 76 20 182/89 97 02/13/20 06:10 02/13/20 06:53 02/13/20 06:10 02/13/20 06:53 02/13/20 08:51 General appearance: Present: no acute distress, well-nourished - EENT Eyes: Present: PERRL - Neck Neck: Present: supple - Respiratory Respiratory: bilateral: CTA - Cardiovascular Heart Sounds: Present: S1 & S2 - Abdominal General gastrointestinal: soft, non-tender, non-distended, normal bowel sounds - Psychiatric Psychiatric: appropriate mood/affect - Neurologic Neurologic: CNII-XII intact HEART Score - HEART Score Age: > 65 Risk factors: 1-2 risk factors Troponin: Troponin T < 0.010 ng/mL (0.00-0.029) 02/11/20 16:35 Troponin: < normal limit - Critical Actions Critical Actions: 4-6 pts:12-16.6% risk of adverse cardiac event. Should be admitted Results - Labs CBC & Chem 7: 02/11/20 16:35 02/11/20 16:35 Labs: Laboratory Last Values WBC 4.7 K/mm3 (4.5-11.0) 02/11/20 16:35 RBC 4.92 M/mm3 (3.65-5.03) 02/11/20 16:35 Hgb 14.1 gm/dl (11.8-15.2) 02/11/20 16:35 Hct 42.3 % (35.5-45.6) 02/11/20 16:35 MCV 86 fl (84-94) 02/11/20 16:35 MCH 29 pg (28-32) 02/11/20 16:35 MCHC 33 % (32-34) 02/11/20 16:35 RDW 14.7 % (13.2-15.2) 02/11/20 16:35 Plt Count 220 K/mm3 (140-440) 02/11/20 16:35 Lymph % (Auto) 31.0 % (13.4-35.0) 02/11/20 16:35 [place] % (Auto) 11.5 % (0.0-7.3) H 02/11/20 16:35 Eos % (Auto) 1.9 % (0.0-4.3) 02/11/20 16:35 Baso % (Auto) 0.9 % (0.0-1.8) 02/11/20 16:35 Lymph # (Auto) 1.4 K/mm3 (1.2-5.4) 02/11/20 16:35 [place] # (Auto) 0.5 K/mm3 (0.0-0.8) 02/11/20 16:35 Eos # (Auto) 0.1 K/mm3 (0.0-0.4) 02/11/20 16:35 Baso # (Auto) 0.0 K/mm3 (0.0-0.1) 02/11/20 16:35 Seg Neutrophils % 54.7 % (40.0-70.0) 02/11/20 16:35 Seg Neutrophils # 2.5 K/mm3 (1.8-7.7) 02/11/20 16:35 PT 14.8 Sec. (12.2-14.9) 02/11/20 16:35 INR 1.14 (0.87-1.13) H 02/11/20 16:35 APTT 28.9 Sec. (24.2-36.6) 02/11/20 16:35 Thrombin Time 16.5 Sec. (15.1-19.6) 02/11/20 16:35 Sodium 142 mmol/L (137-145) 02/11/20 16:35 Potassium 4.1 mmol/L (3.6-5.0) 02/11/20 16:35 Chloride 102.6 mmol/L (98-107) 02/11/20 16:35 Carbon Dioxide 27 mmol/L (22-30) 02/11/20 16:35 Anion Gap 17 mmol/L 02/11/20 16:35 BUN 13 mg/dL (9-20) 02/11/20 16:35 Creatinine 1.3 mg/dL (0.8-1.3) 02/11/20 16:35 Estimated GFR > 60 ml/min 02/11/20 16:35 BUN/Creatinine Ratio 10 % 02/11/20 16:35 Glucose 94 mg/dL (75-100) 02/11/20 16:35 Hemoglobin A1c 5.6 % (4-6) 02/11/20 16:35 Calcium 9.4 mg/dL (8.4-10.2) 02/11/20 16:35 Total Bilirubin 0.40 mg/dL (0.1-1.2) 02/11/20 16:35 AST 18 units/L (5-40) 02/11/20 16:35 ALT 15 units/L (7-56) 02/11/20 16:35 Alkaline Phosphatase 87 units/L (35-129) 02/11/20 16:35 Total Creatine Kinase 277 units/L (55-170) H 02/11/20 16:35 CK-MB (CK-2) 2.8 ng/mL (0.0-4.0) 02/11/20 16:35 CK-MB (CK-2) Rel Index 1.0 (0-4) 02/11/20 16:35 Troponin T < 0.010 ng/mL (0.00-0.029) 02/11/20 16:35 Total Protein 7.7 g/dL (6.3-8.2) 02/11/20 16:35 Albumin 4.0 g/dL (3.9-5) 02/11/20 16:35 Albumin/Globulin Ratio 1.1 % 02/11/20 16:35 Urine Color Yellow (Yellow) 02/13/20 09:10 Urine Turbidity Clear (Clear) 02/13/20 09:10 Urine pH 5.0 (5.0-7.0) 02/13/20 09:10 Ur Specific [place] 1.016 (1.003-1.030) 02/13/20 09:10 Urine Protein 100 mg/dl mg/dL (Negative) 02/13/20 09:10 Urine Glucose (UA) Neg mg/dL (Negative) 02/13/20 09:10 Urine Ketones Neg mg/dL (Negative) 02/13/20 09:10 Urine Blood Mod (Negative) 02/13/20 09:10 Urine Nitrite Neg (Negative) 02/13/20 09:10 Urine Bilirubin Neg (Negative) 02/13/20 09:10 Urine Urobilinogen < 2.0 mg/dL (<2.0) 02/13/20 09:10 Ur Leukocyte Esterase Neg (Negative) 02/13/20 09:10 Urine WBC (Auto) 1.0 /HPF (0.0-6.0) 02/13/20 09:10 Urine RBC (Auto) 4.0 /HPF (0.0-6.0) 02/13/20 09:10 Urine Bacteria (Auto) 1+ /HPF (Negative) 02/13/20 09:10 Urine Mucus 1+ /HPF 02/13/20 09:10 - Diagnostic Impressions Diagnostic Impressions: Echocardiogram 02/12/20 05:23 Transthoracic Echocardiogram Indication: Stroke BP: 184/95 HR: 63 Conclusions *BRUCE *MILD GLOBAL LV DYSFUNCTION *EF 40-50% *GRADE III DIASTOLIC DYSFUNCTION *MILD AI * " DILITATION OF THE AORTIC ROOT ASCENDING AORTA *MILD LVH Findings Left Ventricle: The left ventricular chamber size is normal. Mild concentric left ventricular hypertrophy is observed. Global left ventricular systolic function is at the lower limits of normal. The estimated ejection fraction is 40-45%. The left ventricular diastolic filling pattern is restrictive. Left Atrium: The left atrium is moderately dilated. Right Ventricle: The right ventricular cavity size is normal. The right ventricular global systolic function is mildly reduced. Right Atrium: The right atrium is mildly dilated. No atrial septal defected is demonstrated by agitated saline contrast. Aortic Valve: Mild aortic leaflet calcification is visualized. There is mild aortic regurgitation. Mitral Valve: There is mitral annular calcification. There is trace of mitral regurgitation. Tricuspid Valve: The tricuspid valve leaflets are normal. There is trace tricuspid regurgitation. The right ventricular systolic pressure is calculated at 22 mmHg. Pulmonic Valve: The pulmonic valve appears normal. There is mild pulmonic regurgitation. Pericardium: There is no pericardial effusion. Aorta: There is mild dilatation of the aortic root. Venous: The inferior vena cava appears normal. Contrast: Intravenous agitated saline contrast was used to assess intracardiac shunting. Measurements Chambers 2D Name Value Normal Range IVSd (2D) 1.28 cm (0.6 - 1.1) LVPWd (2D) 1.21 cm (0.6 - 1.1) LVIDd (2D) 5.24 cm (3.7 - 5.6) LVIDs (2D) 4.12 cm (2 - 3.8) LV FS (2D) 21.33 % - EF Teichholz (2D) 42.97 % - Ao root diameter (2D) 4.07 cm (2 - 3.7) Volumes/Mass Name Value Normal Range LA ESV SP 4CH (A/L) 68.54 ml - LA ESV SP 2CH (A/L) 83.12 ml - LA ESV BP (A/L) 77.61 ml - LA ESV BP (A/L) index 33.17 ml/m2 - LA ESV SP 4CH (MOD) 64.87 ml - LA ESV SP 2CH (MOD) 78.84 ml - LA ESV BP (MOD) 73 ml - LA ESV BP (MOD) index 31.2 ml/m2 - Diastolic/Systolic Function Name Value Normal Range MV E-wave Vmax 1 m/sec - MV deceleration time 185.35 msec - MV A-wave Vmax 0.38 m/sec - MV E:A ratio 2.61 ratio - Aortic Valve Name Value Normal Range AV Vmax 1.05 m/sec - AV VTI 21.05 cm - AV peak gradient 4.4 mmHg - AV mean gradient 2.54 mmHg - LVOT diameter 2.28 cm - LVOT Vmax 1.02 m/sec - LVOT VTI 18.91 cm - LVOT peak gradient 4.2 mmHg - LVOT mean gradient 2.32 mmHg - SV LVOT 77.28 ml - ADELINA (continuity Vmax) 3.99 cm2 - ADELINA (continuity VTI) 3.67 cm2 - AR PHT 697.66 msec - AR peak gradient 70.55 mmHg - Ascending Ao 3.72 cm - Mitral Valve Name Value Normal Range MV Vmax 1.18 m/sec - MV VTI 28.38 cm - MV peak gradient 5.61 mmHg - MV mean gradient 1.54 mmHg - MVA (continuity VTI) 2.72 cm2 - Tricuspid Valve Name Value Normal Range TR Vmax 2.18 m/sec - TR peak gradient 19 mmHg - RAP 3 mmHg - RVSP 22 mmHg - Pulmonic Valve/Qp:Qs Name Value Normal Range PV acceleration time 79.92 msec - [place]/IV: Voiding Method Urinal IV Catheter Type [Left Forearm INT / Saline Lock ] IV Catheter Type [Left INT / Saline Lock Antecubital] Active Medications - Current Medications Current Medications: Generic Name Dose Route Start Last Admin Trade Name Freq PRN Reason Stop Dose Admin Acetaminophen 650 mg 02/12/20 05:19 Tylenol PO Q4H PRN Pain MILD(1-3)/Fever >100.5/ANGEL Aspirin 81 mg 02/12/20 10:00 02/13/20 08:59 Halfprin Ec PO 81 mg QDAY KODY Administration Atorvastatin Calcium 40 mg 02/12/20 22:00 02/12/20 21:17 Lipitor PO 40 mg QHS KODY Administration Famotidine 20 mg 02/12/20 10:00 02/13/20 08:59 Pepcid PO 20 mg BID KODY Administration Heparin Sodium (Porcine) 5,000 unit 02/12/20 10:00 02/13/20 08:59 Heparin SUB-Q 5,000 unit Q12HR KODY Administration Hydromorphone HCl 0.5 mg 02/12/20 05:19 02/12/20 21:18 Dilaudid IV 0.5 mg Q3H PRN Administration Pain , Severe (7-10) Sodium Chloride 1,000 mls @ 75 mls/hr 02/12/20 05:30 02/12/20 07:58 Nacl 0.9% 1000 Ml IV 75 mls/hr DIRECT KODY Administration Ondansetron HCl 4 mg 02/12/20 05:19 Zofran IV Q8H PRN Nausea And Vomiting Oxycodone/Acetaminophen 1 tab 02/12/20 05:19 Percocet 5/325 PO Q6H PRN Pain, Moderate (4-6) Sodium Chloride 10 ml 02/12/20 10:00 02/13/20 08:59 Sodium Chloride Flush Syringe 10 Ml IV Not Given BID KODY Sodium Chloride 10 ml 02/12/20 05:19 Sodium Chloride Flush Syringe 10 Ml IV PRN PRN LINE FLUSH
[2020-02-13] MEDS: SODIUM CHLORIDE 0.9% 1000 ML 1,000 ML IV SCH (12:27)
[2020-02-13 13:23] LABS: Basophils # (Auto) 0.1 K/mm3 (0.0-0.1); Basophils % (Auto) 1.2 % (0.0-1.8); Eosinophils # (Auto) 0.1 K/mm3 (0.0-0.4); Eosinophils % (Auto) 1.5 % (0.0-4.3); Hematocrit 40.4 % (35.5-45.6); Hemoglobin 13.3 gm/dl (11.8-15.2); Lymphocytes # (Auto) 1.5 K/mm3 (1.2-5.4); Lymphocytes % (Auto) 33.6 % (13.4-35.0); Mean Corpuscular HGB Conc 33 % (32-34); Mean Corpuscular Volume 85 fl (84-94); Monocytes # (Auto) 0.4 K/mm3 (0.0-0.8); Monocytes % (Auto) 9.3 % (0.0-7.3); Platelet Count 222 K/mm3 (140-440); Red Blood Count 4.77 M/mm3 (3.65-5.03)
[2020-02-13 13:52] LABS: HDL Cholesterol 41 mg/dL (40-59); LDL Cholesterol,Direct 87 mg/dL (50-130)
[2020-02-13 14:37] LABS: BUN/Creatinine Ratio 15; Blood Urea Nitrogen 15 mg/dL (9-20); Hemolysis Index 28
--- NOTE | 2020-02-13 15:00 | Progress Note ---
Assessment and Plan Assessment and plan: 79-year-old -[place] male with history of hypertension and atrial fibrillation admitted with a headache which lasted for about 1 hour. Patient was asked to go to the emergency room by one of his friends. 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 Patient states while driving he began to have difficulty remembering where he was going and also right-sided weakness. He mentioned symptoms lasted for couple of hours. Patient does not have any nasal regurgitation of fluids. Patient feels that his strength is come back to normal. No right facial droop or diplopia. No loss of consciousness. No uncoordinated gait. Here in the ED, CT head showed no acute stroke. Neurology was consulted for possible CVA. 02/11. MRI brain-shows no acute stroke. CTA head and neck negative for any critical stenosis. Patient still maintained on aspirin at home dose Eliquis. Neurology evaluation appreciated. EEG pending. Echocardiogram shows normal EF with no other PFO or shunt 02/12. Awaiting EEG. Neurology following. He has no complaints today. - Patient Problems (1) TIA (transient ischemic attack) Current Visit: Yes Status: Acute Plan to address problem: Continue aspirin and Eliquis MRI brain showed no acute infarct CTA head and neck negative for any critical stenosis. Echocardiogram negative Need to rule out possible seizure as etiology-EEG still pending (2) Hypertension Current Visit: Yes Status: Chronic Qualifiers: Hypertension type: essential hypertension Qualified Code(s): I10 - Essential (primary) hypertension Plan to address problem: Continue antihypertensives (3) Atrial fibrillation Current Visit: Yes Status: Chronic Qualifiers: Atrial fibrillation type: persistent (not longstanding) Qualified Code(s): I48.19 - Other persistent atrial fibrillation; I48.1 - Persistent atrial fibr illation Plan to address problem: Continue anticoagulation. (4) DVT prophylaxis Current Visit: Yes Status: Acute Plan to address problem: Patient on anticoagulation for A. fib and GI prophylaxis History Interval history: Patient seen and examined at bedside. He feels great. Awaiting EEG. Neuro eval noted Hospitalist Physical - Constitutional Vitals: Temp Pulse Resp BP Pulse Ox 98.2 F 76 20 182/89 97 02/13/20 06:10 02/13/20 06:53 02/13/20 06:10 02/13/20 06:53 02/13/20 08:51 General appearance: Present: no acute distress, well-nourished - EENT Eyes: Present: PERRL - Respiratory Respiratory effort: normal Respiratory: bilateral: CTA - Cardiovascular Heart Sounds: Present: S1 & S2 - Extremities Extremity abnormal: edema - Abdominal General gastrointestinal: soft, non-tender, non-distended, normal bowel sounds - Psychiatric Psychiatric: appropriate mood/affect - Neurologic Neurologic: CNII-XII intact HEART Score - HEART Score Age: > 65 Risk factors: 1-2 risk factors Troponin: Troponin T < 0.010 ng/mL (0.00-0.029) 02/11/20 16:35 Troponin: < normal limit - Critical Actions Critical Actions: 4-6 pts:12-16.6% risk of adverse cardiac event. Should be admitted Results - Labs CBC & Chem 7: 02/13/20 13:07 02/13/20 13:07 Labs: Laboratory Last Values WBC 4.4 K/mm3 (4.5-11.0) L 02/13/20 13:07 RBC 4.77 M/mm3 (3.65-5.03) 02/13/20 13:07 Hgb 13.3 gm/dl (11.8-15.2) 02/13/20 13:07 Hct 40.4 % (35.5-45.6) 02/13/20 13:07 MCV 85 fl (84-94) 02/13/20 13:07 MCH 28 pg (28-32) 02/13/20 13:07 MCHC 33 % (32-34) 02/13/20 13:07 RDW 15.0 % (13.2-15.2) 02/13/20 13:07 Plt Count 222 K/mm3 (140-440) 02/13/20 13:07 Lymph % (Auto) 33.6 % (13.4-35.0) 02/13/20 13:07 [place] % (Auto) 9.3 % (0.0-7.3) H 02/13/20 13:07 Eos % (Auto) 1.5 % (0.0-4.3) 02/13/20 13:07 Baso % (Auto) 1.2 % (0.0-1.8) 02/13/20 13:07 Lymph # (Auto) 1.5 K/mm3 (1.2-5.4) 02/13/20 13:07 [place] # (Auto) 0.4 K/mm3 (0.0-0.8) 02/13/20 13:07 Eos # (Auto) 0.1 K/mm3 (0.0-0.4) 02/13/20 13:07 Baso # (Auto) 0.1 K/mm3 (0.0-0.1) 02/13/20 13:07 Seg Neutrophils % 54.4 % (40.0-70.0) 02/13/20 13:07 Seg Neutrophils # 2.4 K/mm3 (1.8-7.7) 02/13/20 13:07 PT 14.8 Sec. (12.2-14.9) 02/11/20 16:35 INR 1.14 (0.87-1.13) H 02/11/20 16:35 APTT 28.9 Sec. (24.2-36.6) 02/11/20 16:35 Thrombin Time 16.5 Sec. (15.1-19.6) 02/11/20 16:35 Sodium 143 mmol/L (137-145) 02/13/20 13:07 Potassium 4.4 mmol/L (3.6-5.0) 02/13/20 13:07 Chloride 105.0 mmol/L (98-107) 02/13/20 13:07 Carbon Dioxide 20 mmol/L (22-30) L D 02/13/20 13:07 Anion Gap 22 mmol/L 02/13/20 13:07 BUN 15 mg/dL (9-20) 02/13/20 13:07 Creatinine 1.0 mg/dL (0.8-1.3) 02/13/20 13:07 Estimated GFR > 60 ml/min 02/13/20 13:07 BUN/Creatinine Ratio 15 % 02/13/20 13:07 Glucose 100 mg/dL (75-100) 02/13/20 13:07 Hemoglobin A1c 5.6 % (4-6) 02/11/20 16:35 Calcium 9.0 mg/dL (8.4-10.2) 02/13/20 13:07 Total Bilirubin 0.40 mg/dL (0.1-1.2) 02/11/20 16:35 AST 18 units/L (5-40) 02/11/20 16:35 ALT 15 units/L (7-56) 02/11/20 16:35 Alkaline Phosphatase 87 units/L (35-129) 02/11/20 16:35 Total Creatine Kinase 277 units/L (55-170) H 02/11/20 16:35 CK-MB (CK-2) 2.8 ng/mL (0.0-4.0) 02/11/20 16:35 CK-MB (CK-2) Rel Index 1.0 (0-4) 02/11/20 16:35 Troponin T < 0.010 ng/mL (0.00-0.029) 02/11/20 16:35 Total Protein 7.7 g/dL (6.3-8.2) 02/11/20 16:35 Albumin 4.0 g/dL (3.9-5) 02/11/20 16:35 Albumin/Globulin Ratio 1.1 % 02/11/20 16:35 Triglycerides 124 mg/dL (2-149) 02/13/20 13:07 Cholesterol 152 mg/dL (50-199) 02/13/20 13:07 LDL Cholesterol Direct 87 mg/dL (50-130) 02/13/20 13:07 HDL Cholesterol 41 mg/dL (40-59) 02/13/20 13:07 Cholesterol/HDL Ratio 3.70 % 02/13/20 13:07 Urine Color Yellow (Yellow) 02/13/20 09:10 Urine Turbidity Clear (Clear) 02/13/20 09:10 Urine pH 5.0 (5.0-7.0) 02/13/20 09:10 Ur Specific [place] 1.016 (1.003-1.030) 02/13/20 09:10 Urine Protein 100 mg/dl mg/dL (Negative) 02/13/20 09:10 Urine Glucose (UA) Neg mg/dL (Negative) 02/13/20 09:10 Urine Ketones Neg mg/dL (Negative) 02/13/20 09:10 Urine Blood Mod (Negative) 02/13/20 09:10 Urine Nitrite Neg (Negative) 02/13/20 09:10 Urine Bilirubin Neg (Negative) 02/13/20 09:10 Urine Urobilinogen < 2.0 mg/dL (<2.0) 02/13/20 09:10 Ur Leukocyte Esterase Neg (Negative) 02/13/20 09:10 Urine WBC (Auto) 1.0 /HPF (0.0-6.0) 02/13/20 09:10 Urine RBC (Auto) 4.0 /HPF (0.0-6.0) 02/13/20 09:10 Urine Bacteria (Auto) 1+ /HPF (Negative) 02/13/20 09:10 Urine Mucus 1+ /HPF 02/13/20 09:10 - Diagnostic Impressions Diagnostic Impressions: Echocardiogram 02/12/20 05:23 Transthoracic Echocardiogram Indication: Stroke BP: 184/95 HR: 63 Conclusions *BRUCE *MILD GLOBAL LV DYSFUNCTION *EF 40-50% *GRADE III DIASTOLIC DYSFUNCTION *MILD AI * " DILITATION OF THE AORTIC ROOT ASCENDING AORTA *MILD LVH Findings Left Ventricle: The left ventricular chamber size is normal. Mild concentric left ventricular hypertrophy is observed. Global left ventricular systolic function is at the lower limits of normal. The estimated ejection fraction is 40-45%. The left ventricular diastolic filling pattern is restrictive. Left Atrium: The left atrium is moderately dilated. Right Ventricle: The right ventricular cavity size is normal. The right ventricular global systolic function is mildly reduced. Right Atrium: The right atrium is mildly dilated. No atrial septal defected is demonstrated by agitated saline contrast. Aortic Valve: Mild aortic leaflet calcification is visualized. There is mild aortic regurgitation. Mitral Valve: There is mitral annular calcification. There is trace of mitral regurgitation. Tricuspid Valve: The tricuspid valve leaflets are normal. There is trace tricuspid regurgitation. The right ventricular systolic pressure is calculated at 22 mmHg. Pulmonic Valve: The pulmonic valve appears normal. There is mild pulmonic regurgitation. Pericardium: There is no pericardial effusion. Aorta: There is mild dilatation of the aortic root. Venous: The inferior vena cava appears normal. Contrast: Intravenous agitated saline contrast was used to assess intracardiac shunting. Measurements Chambers 2D Name Value Normal Range IVSd (2D) 1.28 cm (0.6 - 1.1) LVPWd (2D) 1.21 cm (0.6 - 1.1) LVIDd (2D) 5.24 cm (3.7 - 5.6) LVIDs (2D) 4.12 cm (2 - 3.8) LV FS (2D) 21.33 % - EF Teichholz (2D) 42.97 % - Ao root diameter (2D) 4.07 cm (2 - 3.7) Volumes/Mass Name Value Normal Range LA ESV SP 4CH (A/L) 68.54 ml - LA ESV SP 2CH (A/L) 83.12 ml - LA ESV BP (A/L) 77.61 ml - LA ESV BP (A/L) index 33.17 ml/m2 - LA ESV SP 4CH (MOD) 64.87 ml - LA ESV SP 2CH (MOD) 78.84 ml - LA ESV BP (MOD) 73 ml - LA ESV BP (MOD) index 31.2 ml/m2 - Diastolic/Systolic Function Name Value Normal Range MV E-wave Vmax 1 m/sec - MV deceleration time 185.35 msec - MV A-wave Vmax 0.38 m/sec - MV E:A ratio 2.61 ratio - Aortic Valve Name Value Normal Range AV Vmax 1.05 m/sec - AV VTI 21.05 cm - AV peak gradient 4.4 mmHg - AV mean gradient 2.54 mmHg - LVOT diameter 2.28 cm - LVOT Vmax 1.02 m/sec - LVOT VTI 18.91 cm - LVOT peak gradient 4.2 mmHg - LVOT mean gradient 2.32 mmHg - SV LVOT 77.28 ml - ADELINA (continuity Vmax) 3.99 cm2 - ADELINA (continuity VTI) 3.67 cm2 - AR PHT 697.66 msec - AR peak gradient 70.55 mmHg - Ascending Ao 3.72 cm - Mitral Valve Name Value Normal Range MV Vmax 1.18 m/sec - MV VTI 28.38 cm - MV peak gradient 5.61 mmHg - MV mean gradient 1.54 mmHg - MVA (continuity VTI) 2.72 cm2 - Tricuspid Valve Name Value Normal Range TR Vmax 2.18 m/sec - TR peak gradient 19 mmHg - RAP 3 mmHg - RVSP 22 mmHg - Pulmonic Valve/Qp:Qs Name Value Normal Range PV acceleration time 79.92 msec - [place]/IV: Voiding Method Urinal IV Catheter Type [Left Forearm INT / Saline Lock ] IV Catheter Type [Left INT / Saline Lock Antecubital] Active Medications - Current Medications Current Medications: Generic Name Dose Route Start Last Admin Trade Name Freq PRN Reason Stop Dose Admin Acetaminophen 650 mg 02/12/20 05:19 Tylenol PO Q4H PRN Pain MILD(1-3)/Fever >100.5/ANGEL Aspirin 81 mg 02/12/20 10:00 02/13/20 08:59 Halfprin Ec PO 81 mg QDAY KODY Administration Atorvastatin Calcium 40 mg 02/12/20 22:00 02/12/20 21:17 Lipitor PO 40 mg QHS KODY Administration Famotidine 20 mg 02/12/20 10:00 02/13/20 08:59 Pepcid PO 20 mg BID KODY Administration Heparin Sodium (Porcine) 5,000 unit 02/12/20 10:00 02/13/20 08:59 Heparin SUB-Q 5,000 unit Q12HR KODY Administration Hydromorphone HCl 0.5 mg 02/12/20 05:19 02/12/20 21:18 Dilaudid IV 0.5 mg Q3H PRN Administration Pain , Severe (7-10) Sodium Chloride 1,000 mls @ 75 mls/hr 02/12/20 05:30 02/13/20 12:27 Nacl 0.9% 1000 Ml IV 75 mls/hr DIRECT KODY Administration Ondansetron HCl 4 mg 02/12/20 05:19 Zofran IV Q8H PRN Nausea And Vomiting Oxycodone/Acetaminophen 1 tab 02/12/20 05:19 Percocet 5/325 PO Q6H PRN Pain, Moderate (4-6) Sodium Chloride 10 ml 02/12/20 10:00 02/13/20 08:59 Sodium Chloride Flush Syringe 10 Ml IV Not Given BID KODY Sodium Chloride 10 ml 02/12/20 05:19 Sodium Chloride Flush Syringe 10 Ml IV PRN PRN LINE FLUSH
[2020-02-14] MEDS: FAMOTIDINE 20 MG TAB PO SCH (11:23)
[2020-02-14] MEDS: ASPIRIN EC 81 MG TAB PO SCH (11:23)
[2020-02-14] MEDS: HEPARIN 5,000 UNIT/1 ML VIAL SUB-Q SCH (11:24)
--- NOTE | 2020-02-14 12:01 | Discharge Summary ---
Providers - Providers Date of Admission: 02/11/20 19:00 Date of discharge: 02/14/20 Attending physician: BALJINDER SWAIN 02/12/20 05:19 Consult to Physician [CONS] Routine Comment: Consulting Provider: MILI GORE Physician Instructions: Reason For Exam: TIA 02/12/20 05:22 Occupational Therapy Evaluate and Treat [CONS] Routine Comment: Reason For Exam: Neuro deficits Physical Therapy Evaluation and Treat [CONS] Routine Comment: Reason For Exam: Neuro deficits [facility] Condition: Fair Hospital course: 79-year-old -[place] male with history of hypertension and atrial fibrillation admitted with a headache which lasted for about 1 hour. Patient was asked to go to the emergency room by one of his friends. Patient went to his [employer] yesterday. Patient states while driving he began to have difficulty remembering where he was going and also right-sided weakness. He mentioned symptoms lasted for couple of hours. Patient does not have any nasal regurgitation of fluids. Patient feels that his strength is come back to normal. No right facial droop or diplopia. No loss of consciousness. No uncoordinated gait. Here in the ED, CT head showed no acute stroke. Neurology was consulted for possible CVA. 02/11. MRI brain-shows no acute stroke. CTA head and neck negative for any critical stenosis. Patient still maintained on aspirin at home dose Eliquis. Neurology evaluation appreciated. EEG pending. Echocardiogram shows normal EF with no other PFO or shunt 02/12. Awaiting EEG. Neurology following. He has no complaints today. 02/13. he is alert and oriented x3. EEG has been pending for 2 days - No reports yet. At this time, one cannot say if he had a seizure. Even if EEG is performed, it may not reflect what happened on admission. As a result, I will place him on [facility] and have him follow up with a neurology where he will have EEG/ambulatory EEG. He has been advised not to operate heavy machinery or drive until he is cleared by his primary medical doctor or neurologist. He agrees with plan. Disposition: - TO HOME OR SELFCARE - Discharge Diagnoses (1) AMS (altered mental status) Status: Acute (2) TIA (transient ischemic attack) Status: Acute (3) Atrial fibrillation Status: Chronic Qualifiers: Atrial fibrillation type: persistent (not longstanding) Qualified Code(s): I48.19 - Other persistent atrial fibrillation; I48.1 - Persistent atrial fibrillation (4) Hypertension Status: Chronic Qualifiers: Hypertension type: essential hypertension Qualified Code(s): I10 - Essential (primary) hypertension Core Measure Documentation - Palliative Care Palliative Care/ Comfort Measures: Not Applicable - Core Measures Any of the following diagnoses?: none Exam - Constitutional Vitals: Temp Pulse Resp BP Pulse Ox 98.3 F 79 20 163/91 97 02/14/20 05:19 02/14/20 05:19 02/14/20 05:19 02/14/20 05:19 02/14/20 05:19 General appearance: Present: no acute distress, well-nourished - EENT Eyes: Present: PERRL ENT: hearing intact, clear oral mucosa - Neck Neck: Present: supple, normal ROM - Respiratory Respiratory effort: normal Respiratory: bilateral: CTA - Cardiovascular Heart Sounds: Present: S1 & S2. Absent: rub, click - Extremities Extremities: pulses symmetrical, No edema Peripheral Pulses: within normal limits - Abdominal General gastrointestinal: Present: soft, non-tender, non-distended, normal bowel sounds Male genitourinary: Present: normal - Integumentary Integumentary: Present: clear, warm, dry - Musculoskeletal Musculoskeletal: gait normal, strength equal bilaterally - Psychiatric Psychiatric: appropriate mood/affect, intact judgment & insight - Neurologic Neurologic: CNII-XII intact, moves all extremities Plan Additional Instructions: Continue medications as prescribed. Do not operate heavy machinery or drive until you are cleared by your primary medical doctor or neurologist. Follow up with: RICHVILLE TAMARA KRUEGER MD [Primary Care Provider] - 7 Days JUAN PAGE MD [Staff Physician] - 7 Days Prescriptions: AtorvaSTATin [Lipitor] 40 mg PO QHS #30 tablet levETIRAcetam [Keppra TAB] 500 mg PO BID #60 tablet
[2020-02-14 18:08] VITALS: BP 160/90
== END 2020-02-14 15:50 | disposition home or self-care (01) ==
LOC: ED 15:51 → 3A 19:00
PROVIDERS: ADMIT Internal Medicine; ATTEND Internal Medicine
DX: G45.9 Transient cerebral ischemic attack, unspecified (principal); I10 Essential (primary) hypertension; I48.91 Unspecified atrial fibrillation; R41.82 Altered mental status, unspecified; R29.706 NIHSS score 6; E78.5 Hyperlipidemia, unspecified; Z79.82 Long term (current) use of aspirin; Z79.899 Other long term (current) drug therapy
CPT/HCPCS: 36415; 70450; 70496; 70498; 70551; 80048; 80053; 80061; 81001; 82550; 82553; 83036; 84484; 85025; 85610; 85670; 85730; 93005; 93306; 94760; 95819; 96361; 96372; 96374; 96375; 97161; 97165; 99291; A9270; G0378; J1170; J1644; J3486; J7030; Q9967

== ENCOUNTER 2020-05-26 06:59 | Outpatient (CLI) | payer BC ==
--- NOTE | 2020-05-26 08:09 | Cat Scan Report ---
CT ABDOMEN AND PELVIS WITHOUT CONTRAST HISTORY: HEMATURIA COMPARISON: None. TECHNIQUE: Axial CT images were obtained through the abdomen and pelvis without IV contrast. Sagittal and coronal reformatted images. All CT scans at this location are performed using CT dose reduction for ALARA by means of automated exposure control. FINDINGS: CT ABDOMEN: Lung Bases: Clear. Liver: The liver is normal size, contour and density. A 1.7 cm hypodensity is identified in the centr al right hepatic lobe which probably represents a small cyst or hemangioma. Biliary: No significant abnormality. Spleen: No significant abnormality. Unenlarged. Pancreas: No significant abnormality. Adrenals: No significant abnormality. Kidneys: Both kidneys are normal size, contour and position. A few punctate calyceal stones are ident ified in both kidneys. A 1 cm hemorrhagic cyst is noted in the superior left kidney. No obvious renal mass. No ureteral stones or hydronephrosis. Lymphatics: No lymphadenopathy. Vasculature: No significant abnormality. Bowel/Peritoneum: Mild diverticulosis of the sigmoid colon is identified. No evidence for focal infla mmation, free fluid or free air. No inflammatory changes. The appendix is not confidently identified. CT PELVIS: : The bladder and prostate gland are within normal limits. Osseous Structures: Mild lumbar spondylosis. No fracture or suspicious bony lesion. Additional Findings: A small to medium umbilical hernia containing fat is identified. No inflammatory changes. IMPRESSION: A few punctate bilateral renal calyceal stones are identified. No ureteral stones or hydronephrosis. 1 cm hemorrhagic cyst in the superior left kidney. 1.7 cm right hepatic lobe hypodensity probably representing a cyst or hemangioma. Mild sigmoid diverticulosis. Umbilical hernia containing fat. Signer Name: Manny Mcnamara Jr, MD Signed: 05/26/2020 8:04 AM Workstation Name: [id number]
== END 2020-05-26 07:00 | disposition home or self-care (01) ==
LOC: CT 06:59
PROVIDERS: ATTEND Urology
DX: N28.1 Cyst of kidney, acquired (principal); N20.0 Calculus of kidney; K57.30 Diverticulosis of large intestine without perforation or abscess without bleeding; K42.9 Umbilical hernia without obstruction or gangrene; N13.30 Unspecified hydronephrosis; R31.0 Gross hematuria; M47.816 Spondylosis without myelopathy or radiculopathy, lumbar region
CPT/HCPCS: 74176